=== PATIENT | female | born 1975 | race Caucasian/White ===

== ENCOUNTER 2017-11-17 14:24 | Day surgery (SDC) | payer BC ==
[2017-11-14 16:46] LABS: BASOPHILS # (AUTO) 0.1 X10'3 (0-0.2); BASOPHILS % (AUTO) 0.9 % (0-1); EOSINOPHILS # (AUTO) 0.3 X10'3 (0-0.9); EOSINOPHILS % (AUTO) 2.4 % (0-6); HEMATOCRIT 41.6 % (35.0-45.0); HEMOGLOBIN 14.3 g/dl (12.0-16.0); LYMPHOCYTES # (AUTO) 3.1 X10'3 (1.1-4.8); LYMPHOCYTES % (AUTO) 27.4 % (21-51); MEAN CORPUSCULAR HGB CONC 34.4 % (33.0-36.5); MEAN CORPUSCULAR VOLUME 89.9 FL (78-98); MEAN PLATELET VOLUME 7.8 FL (7.4-10.4); MONOCYTES % (AUTO) 8.7 % (2-12); NEUTROPHILS # (AUTO) 6.9 X10'3 (1.8-7.7); NEUTROPHILS % (AUTO) 60.6 % (42-75); PLATELET COUNT 297 X10'3 (140-440); RED BLOOD COUNT 4.62 X10'6 (4.20-5.60); RED CELL DISTRIBUTION WIDTH 14.1 % (11.5-14.5); WHITE BLOOD COUNT 11.4 X10'3 (4.5-11.0)
[2017-11-14 17:03] LABS: ALBUMIN 3.6 G/DL (3.4-5.0); ANION GAP 11 (8-16); BLOOD UREA NITROGEN 13 MG/DL (7-18); BUN/CREATININE RATIO 13.7 (6.6-38.0); CHLORIDE 106 MMOL/L (99-107); CREATININE 0.95 MG/DL (0.40-0.90); GLUCOSE 96 MG/DL (70-104); POTASSIUM 3.9 MMOL/L (3.5-5.1); SODIUM 142 MMOL/L (135-145); TOTAL CARBON DIOXIDE 25.5 MMOL/L (24-32); eGFR 65 ML/MIN
[~2017-11-17] VITALS: Ht 162.6 cm; Wt 124.5 kg
[2017-11-17] MEDS ORDERED: LIDOcaine/PRILOcaine 5gm cream TP ONE (14:45)
[2017-11-17] MEDS ORDERED: normal saline 1000ml 1,000 ML IV SCH ×2 (14:45→19:10)
[2017-11-17] MEDS ORDERED: diphenhydrAMINE 25mg capsule PO PRN (14:45)
[2017-11-17] MEDS ORDERED: LORazepam 0.5 MG tablet PO PRN (14:45)
[2017-11-17] MEDS ORDERED: ACYC-202 PO (14:52)
[2017-11-17] MEDS ORDERED: CETI-102 PO (14:52)
[2017-11-17] MEDS ORDERED: ALB0.5UD IH (14:52)
[2017-11-17] MEDS ORDERED: TERB30CR TP (14:52)
[2017-11-17] MEDS ORDERED: LOSA25TA96 PO (14:52)
[2017-11-17] MEDS ORDERED: FLUT16SP2 BOTHNARES (14:52)
[2017-11-17] MEDS ORDERED: DIPH25CA83 PO (14:52)
[2017-11-17 15:14] VITALS: BP 156/102
[2017-11-17 17:10] LABS: PARTIAL THROMBOPLASTIN TIME 24 SECONDS (22-32); PROTHROMBIN TIME 10.2 SECONDS (9.0-12.0)
[2017-11-17] MEDS ORDERED: midazolam 2 mg/2 ml injection ONE ×2 (18:11→18:21)
[2017-11-17] MEDS ORDERED: verapamil 2.5 mg/ml inj IV ONE (18:11)
[2017-11-17] MEDS ORDERED: fentaNYL/PF 50MCG/1 ML 2ML syringe ONE (18:12)
[2017-11-17] MEDS ORDERED: nitroGLYCERIN-Tridil 50MG/D5W 250 ML IV ONE (18:12)
[2017-11-17] MEDS ORDERED: heparin 1,000unit/ml 10ml vial 10 ML ONE (18:12)
[2017-11-17] MEDS ORDERED: LIDOcaine 1% (10mg/ml)w/preservative injection 20ml MDV ONE (18:12)
[2017-11-17] MEDS ORDERED: iohexol 350MG/ML 100ml bottle IV ONE (18:12)
[2017-11-17 19:00] VITALS: BP 153/95
[2017-11-17] MEDS ORDERED: OXAZEpam 15mg capsule PO PRN (19:10)
[2017-11-17] MEDS ORDERED: proCHLORperazine 10 MG/2 ml inj IV PRN (19:10)
[2017-11-17] MEDS ORDERED: ondansetron/PF 4mg/2ml inj IV PRN (19:10)
[2017-11-17 19:15] VITALS: BP 142/88
[2017-11-17 19:29] VITALS: BP 134/73
[2017-11-17 19:46] VITALS: BP 132/73
[2017-11-17 20:13] VITALS: BP 158/98
== END 2017-11-17 20:30 | disposition home or self-care (01) ==
LOC: SSTAY O 14:24
PROVIDERS: ATTEND Internal Medicine Interventional Cardiology
DX: I25.118 Atherosclerotic heart disease of native coronary artery with other forms of angina pectoris (principal); I10 Essential (primary) hypertension; G47.10 Hypersomnia, unspecified; J45.998 Other asthma; Z88.2 Allergy status to sulfonamides; Z72.89 Other problems related to lifestyle; Z88.8 Allergy status to other drugs, medicaments and biological substances; Z79.899 Other long term (current) drug therapy; Z98.890 Other specified postprocedural states; Z82.3 Family history of stroke; Z82.49 Family history of ischemic heart disease and other diseases of the circulatory system; Z83.42 Family history of familial hypercholesterolemia; Z80.42 Family history of malignant neoplasm of prostate; Z80.0 Family history of malignant neoplasm of digestive organs
CPT/HCPCS: 36415; 80048; 85025; 85610; 85730; 93005; 93458; 99152; A6257; A6258; C1769; J1644; J2001; J2250; J3010; J3490; J7030; Q0163; Q9967